=== PATIENT | male | born 1945 | race Caucasian/White ===

== ENCOUNTER 2021-03-15 07:00 | Day surgery (SDC) | payer MEDICARE, BC ==
[2021-03-15] MEDS ORDERED: Depo-Medrol 40 MG/ML IM ONE (07:01)
[2021-03-15] MEDS ORDERED: Sodium Chloride 0.9(Preservative Free) 10 ML IJ ONE (07:01)
[2021-03-15] MEDS ORDERED: DIPRIVAN 200 MG/20 ML IV ONE (08:15)
[2021-03-15] MEDS ORDERED: MORPHINE SULFATE 10 MG/ML ONE (08:34)
--- NOTE | 2021-03-15 10:39 | XRAY ---
Indication: Right L4-S1 NAHED. Intraoperative fluoroscopy provided for 34 seconds. 4 digital spot image submitted for interpretation demonstrate posterior needle tips projecting over the expected right L4 and L5 nerve roots. Small amount of contrast injected for needle tip placement. Correlate with intraoperative findings/report.
--- NOTE | 2021-03-15 10:41 | XRAY ---
34 seconds fluoroscopy time in surgery for right L4-S1 NAHED.
[2021-03-15] MEDS ORDERED: Lactated Ringers 1,000 ML IV ONE (15:58)
== END 2021-03-15 08:49 | disposition home or self-care (01) ==
LOC: SDC-PAIN 07:00
PROVIDERS: ATTEND Psychiatry & Neurology Pain Medicine
DX: M54.16 Radiculopathy, lumbar region (principal); I10 Essential (primary) hypertension; E11.9 Type 2 diabetes mellitus without complications; E78.5 Hyperlipidemia, unspecified; N40.0 Benign prostatic hyperplasia without lower urinary tract symptoms; M19.90 Unspecified osteoarthritis, unspecified site; Z79.899 Other long term (current) drug therapy
CPT/HCPCS: 72100; 77002; 82947; J1030; J2270; J2704

== ENCOUNTER 2021-04-05 08:24 | Day surgery (SDC) | payer MEDICARE, BC ==
[2021-04-05] MEDS ORDERED: Sodium Chloride 0.9(Preservative Free) 10 ML IJ ONE (08:25)
[2021-04-05] MEDS ORDERED: Depo-Medrol 40 MG/ML IM ONE (08:25)
[2021-04-05] MEDS ORDERED: DIPRIVAN 200 MG/20 ML IV ONE (09:27)
[2021-04-05] MEDS ORDERED: MORPHINE SULFATE 10 MG/ML ONE (09:43)
--- NOTE | 2021-04-05 10:43 | XRAY ---
Indication: Right L4-S1 transforaminal NAHED. Intraoperative fluoroscopy provided for 31 seconds. 4 digital spot images submitted for interpretation demonstrates posterior needle tips projecting over the expected right L4 and L5 nerve roots. Small amount of contrast injected for needle tip placement. Correlate with intraoperative findings/report.
--- NOTE | 2021-04-05 10:47 | XRAY ---
31 seconds fluoroscopy time in surgery for right L4-S1 transforaminal NAHED.
[2021-04-05] MEDS ORDERED: Lactated Ringers 1,000 ML IV ONE (16:17)
== END 2021-04-05 09:56 | disposition home or self-care (01) ==
LOC: SDC-PAIN 08:24
PROVIDERS: ATTEND Psychiatry & Neurology Pain Medicine
DX: M54.16 Radiculopathy, lumbar region (principal); I10 Essential (primary) hypertension; E11.9 Type 2 diabetes mellitus without complications; E78.5 Hyperlipidemia, unspecified; N40.0 Benign prostatic hyperplasia without lower urinary tract symptoms; M19.90 Unspecified osteoarthritis, unspecified site; Z79.899 Other long term (current) drug therapy
CPT/HCPCS: 64483; 64484; 72100; 77003; 82947; J1030; J2270; J2704; Q9966

== ENCOUNTER 2021-04-26 08:33 | Day surgery (SDC) | payer MEDICARE, BC ==
[2021-04-26] MEDS ORDERED: Sodium Chloride 0.9(Preservative Free) 10 ML IJ ONE (08:34)
[2021-04-26] MEDS ORDERED: Depo-Medrol 40 MG/ML IM ONE (08:34)
[2021-04-26] MEDS ORDERED: DIPRIVAN 200 MG/20 ML IV ONE (09:50)
--- NOTE | 2021-04-26 10:40 | XRAY ---
Indication: Right L3-L5 transforaminal NAHED. Intraoperative fluoroscopy provided for 29 seconds. 5 digital spot images submitted for interpretation demonstrates posterior needle tips projecting over the expected right L3 and L4 nerve roots. Small amount of contrast injected for needle tip placement. Correlate with intraoperative findings/report.
--- NOTE | 2021-04-26 12:05 | XRAY ---
29 seconds of fluoroscopy was used in surgery for a right L3-L4, L4-L5 transforaminal NAHED.
[2021-04-26] MEDS ORDERED: Lactated Ringers 1,000 ML IV ONE (16:00)
== END 2021-04-26 10:17 | disposition home or self-care (01) ==
LOC: SDC-PAIN 08:33
PROVIDERS: ATTEND Psychiatry & Neurology Pain Medicine
DX: M54.16 Radiculopathy, lumbar region (principal); M19.90 Unspecified osteoarthritis, unspecified site; I10 Essential (primary) hypertension; E11.9 Type 2 diabetes mellitus without complications; E78.5 Hyperlipidemia, unspecified; N40.0 Benign prostatic hyperplasia without lower urinary tract symptoms; Z79.899 Other long term (current) drug therapy
CPT/HCPCS: 64483; 64484; 72100; 77003; 82947; J1030; J2704; Q9966

== ENCOUNTER 2021-12-13 09:27 | Day surgery (SDC) | payer MEDICARE, BC ==
[2021-12-13] MEDS ORDERED: Depo-Medrol 40 MG/ML IM ONE (09:28)
[2021-12-13] MEDS ORDERED: Sodium Chloride 0.9% 10 ML FLUSH Syringe IJ ONE (09:28)
[2021-12-13] MEDS ORDERED: DIPRIVAN 200 MG/20 ML IV ONE (12:20)
[2021-12-13] MEDS ORDERED: Lactated Ringers 1,000 ML IV ONE (12:29)
--- NOTE | 2021-12-13 13:22 | XRAY ---
Indication: Right L3-L5 transforaminal NAHED. Intraoperative fluoroscopy provided for 32 seconds. 4 digital spot image submitted for interpretation demonstrates posterior needle tips projecting over the expected right L3 and L4 nerve roots. Small amount of contrast is injected for needle tip placement. Correlate with intraoperative findings/report.
--- NOTE | 2021-12-13 13:59 | XRAY ---
32 fluoroscopy time in surgery for right L3-L5 transforaminal NAHED.
== END 2021-12-13 12:46 | disposition home or self-care (01) ==
LOC: SDC-PAIN 09:27
PROVIDERS: ATTEND Psychiatry & Neurology Pain Medicine
DX: M54.16 Radiculopathy, lumbar region (principal); I10 Essential (primary) hypertension; E11.9 Type 2 diabetes mellitus without complications; Z79.899 Other long term (current) drug therapy
CPT/HCPCS: 64483; 64484; 72100; 77003; 82947; J1030; J2704; Q9966